=== PATIENT | male | born 1950 | race American Indian/Alaskan Native ===

== ENCOUNTER 2018-05-10 10:52 | Emergency (ER) | payer MEDICARE, OTHER ==
[2018-05-10 10:59] VITALS: PULSE 69; TEMP 97.9
[2018-05-10] MEDS ORDERED: Lidocaine 5% Patch TD STA (11:34)
--- NOTE | 2018-05-10 11:43 | C.PDOC ---
History Of Present Illness 67 year old male, whose past medical history includes herniated discs, presents to the ED for evaluation of sharp, right lower back pain which began yesterday. Patient states his pain occasionally radiates down his right leg. He took two Advils this morning at 0600 without relief. Patient denies urinary/bowel incontinence, extremity numbness/weakness, or any recent trauma/injuries. Time Seen by Provider: 05/10/18 11:10 Chief Complaint (Nursing): Lower Extremity Problem/Injury History Per: Patient History/Exam Limitations: no limitations Onset/Duration Of Symptoms: Hrs Current Symptoms Are (Timing): Still Present Additional History Per: Patient Past Medical History Reviewed: Historical Data, Nursing Documentation, Vital Signs Vital Signs: Last Vital Signs Temp 97.9 F 05/10/18 10:56 Pulse 69 05/10/18 10:56 Resp 20 05/10/18 10:56 BP 179/89 H 05/10/18 10:56 Pulse Ox 97 05/10/18 10:56 - Medical History PMH: HTN Surgical History: No Surg Hx Family History: States: Unknown Family Hx - Social History Hx Alcohol Use: Yes Hx Substance Use: Yes - Immunization History Hx Tetanus Toxoid Vaccination: No Hx Influenza Vaccination: No Hx Pneumococcal Vaccination: No Review Of Systems Musculoskeletal: Positive for: Back Pain (right-sided, lower ) Neurological: Negative for: Weakness, Numbness Physical Exam - Physical Exam Appears: Non-toxic, No Acute Distress Skin: Normal Color, Warm, Dry Head: Atraumatic, Normacephalic Back: Paraspinal Tenderness (right-sided, lumbar ), Straight Leg Raising Extremity: No Tenderness, Capillary Refill (less than 2 seconds ), No Swelling Neurological/Psych: Normal Speech, Normal Cognition, Normal Sensation ED Course And Treatment O2 Sat by Pulse Oximetry: 97 (on RA) Pulse Ox Interpretation: Normal Medical Decision Making Medical Decision Making: Plan: * Decadron IM * Toradol IM * Lidoderm patch * reassess and disposition Progress: Decadron IM, Toradol IM, and Lidoderm patch given. Disposition - Disposition Referrals: Kt Perez MD [Non-Staff] - Disposition: HOME/ ROUTINE Disposition Time: 13:01 Condition: STABLE Additional Instructions: Follow up with the medical doctor within 1-2 days. Return if worsened. 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 - Scribe Statement The provider has reviewed the documentation as recorded by the Scribe (Torri Vazquez) All medical record entries made by the Scribe were at my direction and personally dictated by me. I have reviewed the chart and agree that the record accurately reflects my personal performance of the history, physical exam, medical decision making, and the department course for this patient. I have also personally directed, reviewed, and agree with the discharge instructions and disposition.
[2018-05-10] MEDS ORDERED: Lidocaine 5% Patch TD ONE (11:45)
[2018-05-10 13:08] VITALS: BP 155/87; RESP 16; O2SAT 98
== END 2018-05-10 13:07 | disposition home or self-care (01) ==
LOC: C.ER 10:52
DX: M54.16 Radiculopathy, lumbar region (principal)
CPT/HCPCS: 96372; 99283; J1100; J1885

== ENCOUNTER 2018-05-12 11:24 | Emergency (ER) | payer MEDICARE, OTHER ==
[2018-05-12 11:31] VITALS: BMI 25.0
[2018-05-12 11:33] VITALS: BP 176/66; PULSE 63; RESP 18; TEMP 98.4; O2SAT 100
--- NOTE | 2018-05-12 11:45 | C.PDOC ---
History Of Present Illness 67 y/o male,w/PMhx of HTN and lumbar herniated discs (confirmed with MRI at [facility]), presents to the ER complaining of lower back pain which has been present for the past 4 days. Patient states that the pain is sharp and begins in the lower back and radiates down the right hip and leg. Patient notes that the pain is worse with walking. Pt has had this pain for many years and has been undergoing physical therapy. However, he states that he stepped off the curb 4 days ago which caused the pain to become worse. He was evaluated for similar symptoms in [facility] ER on 05/10/18. At the time, he was treated with Toradol and Decadron with good relief. He was discharged with prescriptions for Valium and Naproxen. He took Naproxen without relief in the morning today. He did not take Valium because he has not filled out the prescription.He has occasional numbness and parasthesias to right lower leg. Otherwise, patient denies having fall, bowel/bladder incontinence, saddle anasthesia, weakness, fever, chills, abdominal pain, calf swelling, or any other associated symptoms. Time Seen by Provider: 05/12/18 11:37 Chief Complaint (Nursing): Lower Extremity Problem/Injury History Per: Patient History/Exam Limitations: no limitations Onset/Duration Of Symptoms: Days Current Symptoms Are (Timing): Still Present Severity: Moderate Past Medical History Reviewed: Historical Data, Nursing Documentation, Vital Signs Vital Signs: Last Vital Signs Temp 98.4 F 05/12/18 11:30 Pulse 63 05/12/18 11:30 Resp 18 05/12/18 11:30 BP 176/66 H 05/12/18 11:30 Pulse Ox 100 05/12/18 11:30 - Medical History PMH: Back Problems, HTN Surgical History: No Surg Hx Family History: States: No Known Family Hx - Social History Hx Alcohol Use: Yes Hx Substance Use: Yes - Immunization History Hx Tetanus Toxoid Vaccination: No Hx Influenza Vaccination: No Hx Pneumococcal Vaccination: No Review Of Systems Except As Marked, All Systems Reviewed And Found Negative. Constitutional: Negative for: Fever, Chills Eyes: Negative for: Vision Change ENT: Negative for: Nose Congestion, Throat Pain Cardiovascular: Negative for: Chest Pain, Palpitations, Light Headedness Respiratory: Negative for: Cough, Shortness of Breath Gastrointestinal: Negative for: Nausea, Vomiting, Abdominal Pain, Diarrhea, Constipation Genitourinary: Negative for: Dysuria, Incontinence, Hematuria Musculoskeletal: Positive for: Back Pain, Leg Pain. Negative for: Neck Pain Skin: Negative for: Rash, Bruising Neurological: Positive for: Numbness. Negative for: Weakness, Headache, Dizziness Physical Exam - Physical Exam Appears: Well, Non-toxic, No Acute Distress Skin: Normal Color, Warm, Dry Head: Atraumatic, Normacephalic Eye(s): bilateral: Normal Inspection, PERRL, EOMI Nose: Normal Oral Mucosa: Moist Neck: Normal, Normal ROM, No Midline Cervical Tenderness, No Paracervical Tenderness, Supple Chest: Symmetrical Cardiovascular: Rhythm Regular Respiratory: Normal Breath Sounds, No Rales, No Rhonchi, No Wheezing Gastrointestinal/Abdominal: Normal Exam, Soft, No Tenderness, No Guarding, No Rebound Back: Normal Inspection, No CVA Tenderness, No Vertebral Tenderness, Decreased ROM (lumbar spine secondary to pain), Paraspinal Tenderness (right lumbar), Straight Leg Raising (positive right straight leg raise at approx 20 degrees) Extremity: Normal ROM, Tenderness (right lateral hip), No Pedal Edema, Calf Tenderness (right), Capillary Refill (<2s), No Swelling Pulses: Left Radial: Normal, Right Radial: Normal, Left Dorsalis Pedis: Normal, Right Dorsalis Pedis: Normal Neurological/Psych: Oriented x3, Normal Speech, Normal Motor, Normal Sensation Gait: Steady ED Course And Treatment O2 Sat by Pulse Oximetry: 100 (RA) Pulse Ox Interpretation: Normal - Other Rad Right Hip XR X-Ray: Viewed By Me, Read By Radiologist Interpretation: FINDINGS: L4-5 and L5-S1 osseous hypertrophy with sclerosis. No fracture dislocation. Bilateral axial hip joint space narrowing. Trace inferomedial and trace superolateral acetabular spurring. Sacroiliac and pubic symphyseal joints within normal limits. IMPRESSION: No fracture or lytic lesion. Sclerotic and hypertrophic changes over the L5 vertebral body and regional facets here. Minimal bilateral hip degenerative changes. Medical Decision Making Medical Decision Making: Plan: --Tylenol PO --X-Ray-Right Hip --Venous Duplex Scan - Low Ext. RT Duplex prelim read is negative for DVT Xray significant for arthritis and chronic changes of the lumbar spine as read by me, no fracture Patient reports decreased pain with tylenol. Advised to fill valium prescription upon discharge. Will give medrol dose pack and advise orthopedic and PMD followup within 2 days. Patient agrees and verbalizes understanding. Diagnostic testing results and plan of care discussed with patient. Strict instructions given regarding prescription use, importance of followup, and signs/symptoms to return to ER including saddle anesthesias, weakness, bowel/bladder incontinence, or any other new/worsening symptoms. Pt verbalized understanding of discussion. Patient is A&Ox3, ambulating with steady gait, with vital signs stable for discharge. Disposition - Disposition Referrals: [facility] [Outside] [facility] [place] [Outside] Max Osorio III, MD [Staff Provider] - Disposition: HOME/ ROUTINE Disposition Time: 13:20 Condition: IMPROVED Additional Instructions: Naproxen daily for pain Valium as needed for pain as instructed Medrol dose pack as instructed Followup with primary doctor within 2 days Followup with orthopedic doctor within 2 days Return to ER with any new/worsening symptoms Prescriptions: Methylprednisolone [Medrol Dose Pack (21 tabs)] 4 mg PO DAILY #21 mg Instructions: Sciatica, Radiculopathy (DC), Sciatica Exercises Forms: General Discharge Instructions, [facility] (Lithuanian), Work Excuse - Clinical Impression Clinical Impression: Low back pain with sciatica - 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 - Scribe Statement The provider has reviewed the documentation as recorded by the Farhat Chiang Provider Attestation All medical record entries made by the Natalieibjennifer were at my direction and personally dictated by me. I have reviewed the chart and agree that the record accurately reflects my personal performance of the history, physical exam, medical decision making, and the department course for this patient. I have also personally directed, reviewed, and agree with the discharge instructions and di sposition.
[2018-05-12] MEDS ORDERED: Lidocaine 5% Patch TD STA (13:08)
[2018-05-12] MEDS ORDERED: Lidocaine 5% Patch TD ONE (13:24)
--- NOTE | 2018-05-12 15:35 | RAD ---
Date of service: 05/12/2018 PROCEDURE: HISTORY: right hip pain COMPARISON: None TECHNIQUE: AP pelvis and frog's leg view. FINDINGS: L4-5 and L5-S1 osseous hypertrophy with sclerosis. No fracture dislocation. Bilateral axial hip joint space narrowing. Trace inferomedial and trace superolateral acetabular spurring. Sacroiliac and pubic symphyseal joints within normal limits. IMPRESSION: No fracture or lytic lesion. Sclerotic and hypertrophic changes over the L5 vertebral body and regional facets here. Minimal bilateral hip degenerative changes.
--- NOTE | 2018-05-13 18:58 | VASCLAB ---
Date of service: 05/12/2018 PROCEDURE: Right Lower Extremity Venous Duplex Exam. HISTORY: Right calf pain PRIORS: None. TECHNIQUE: Right common femoral, femoral, popliteal and posterior tibial, peroneal and great saphenous veins were evaluated. Flow was assessed with color Doppler, compressibility, assessment of phasic flow and augmentation response. Report prepared by THOMAS Arzola, RVT FINDINGS: RIGHT: 1. Common Femoral Vein: 1.1. Compressibility - Fully compressible: Thrombus - None: Flow - Phasic: Augmentation -Normal: Reflux - None. 2. Femoral Vein: 2.1. Compressibility - Fully compressible: Thrombus - None: Flow - Phasic: Augmentation -Normal: Reflux - None. 3. Popliteal Vein: 3.1. Compressibility - Fully compressible: Thrombus - None: Flow - Phasic: Augmentation -Normal: Reflux - None. 4. Posterior Tibial Vein: 4.1. Compressibility - Fully compressible: Thrombus - None: Flow - Phasic: Augmentation -Normal: Reflux - None. 5. Peroneal Vein: 5.1. Compressibility - Fully compressible: Thrombus - None: Flow - Phasic: Augmentation -Normal: Reflux - None. 6. Great Saphenous Vein: 6.1. Compressibility - Fully compressible: Thrombus -None: Flow - Phasic: Augmentation - Normal: Reflux - None. OTHER FINDINGS: IMPRESSION: No evidence of deep or superficial vein thrombosis of the right lower extremity with excellent venous flow. Normal valve function noted of the right side. Normal venous flow noted in the left common femoral vein.
== END 2018-05-12 13:30 | disposition home or self-care (01) ==
LOC: C.ER 11:24
DX: M54.40 Lumbago with sciatica, unspecified side (principal)
CPT/HCPCS: 73502; 93971; 96372; 99283; J1885